=== PATIENT | female | born 2000 | race Caucasian/White ===

== ENCOUNTER 2022-12-22 10:00 | Emergency (ER) | payer MEDICAID, SELFPAY ==
[2022-12-22 10:02] VITALS: BP 110/84; PULSE 95; RESP 16; TEMP 36.4; O2SAT 97; BMI 44.0
--- NOTE | 2022-12-22 10:32 | CT_ITS ---
HISTORY: left flank pain. TECHNIQUE: Helically acquired images were obtained of the abdomen and pelvis without oral or IV contrast. A radiation dose optimization technique was used for this scan. 518 images. COMPARISON: None.. FINDINGS: LOWER CHEST: Lung bases clear. BOWEL: Bowel including appendix nondilated nondilated. No focal pericolonic inflammatory change. PERITONEUM: No significant free fluid. LIVER/SPLEEN/PANCREAS: Nonenlarged. GALLBLADDER/BILIARY TREE: Gallbladder present. KIDNEYS AND URETERS: No nephrolithiasis or obstructing ureteral calculus. ADRENAL GLANDS: Mild linear calcification of the left adrenal gland. VESSELS: Abdominal aorta nondilated. PELVIC ORGANS: Vaginal ring noted. ABDOMINAL WALL: Borderline enlarged left inguinal lymph nodes with mild stranding surrounding the femoral vein bifurcation. BONES: Intact. CT/Abdomen/Pelvis without Cont IMPRESSION: Borderline enlarged left inguinal lymph nodes with mild edema or inflammation in the left groin surrounding the femoral vein bifurcation. Recommend correlation with venous Doppler ultrasound to exclude deep venous thrombosis. Negative examination for renal stone. Left adrenal calcification, which may be secondary to prior granulomatous disease or injury. Electronically Signed: Cammy Yeh MD at 12:49 EST ,
--- NOTE | 2022-12-22 10:32 | VDLE_ITS ---
Reason For Study: PAIN Procedure LEFT This is a venous duplex using B-mode, color CFV is compressible, spontaneous, phasic, flow and spectral Doppler. competent, and demonstrates normal Exam performed portable in ED. augmentation. The study was technically difficult. FV is compressible, spontaneous, phasic, A preliminary report was called and/or faxed competent and demonstrates normal to ED. augmentation. POP V is compressible, spontaneous, phasic, competent and demonstrates normal augmentation. T/P Trunk is compressible. PTV is compressible. LT PerV is compressible. GSV is DILATED AND NON-COMPRESSIBLE @ SFJ & APPEARS TO BEGIN EXTENSION INTO THE CFV. GSV IS NON-COMPRESSIBLE AND DILATED TO KNEE. GSV IS COMPRESSIBLE BELOW THE KNEE. VL/Venous Duplex US, Unilateral Interpretation Summary Acute deep vein thrombosis is noted in the left sapheno-femoral junction. Great saphenous vein occluded to knee. Ordering Physician: Jessica Gill Referring Physician: OTD Performed By: Es Montoya RDCS, RVT
--- NOTE | 2022-12-22 10:33 | EDS_ITS ---
HPI History of Present Illness Chief Complaint: General Illness Informant: patient and parent Onset/Context/Timing Onset: Days Context: Gradual Onset Timing: Waxes and wanes Current Severity: Mild Maximum Severity: Moderate Narrative Narrative: Patient presents with left flank pain with some radiation of pain into the medial thigh. Symptoms been ongoing for the past several days. She had the NuvaRing placed 2 weeks ago. She called her [employer]ER who wanted her to get an ultrasound of her leg. The urgent care she went to in [place] refused to do it based on her exam and symptoms. For me she complains of more left flank pain into the groin line with occasional pain into the medial proximal thigh. No urinary symptoms. PFSH PFSH Medical History no medical history no medical history Home Medications rivaroxaban 15 mg tablet (Xarelto) 15 mg PO BID #42 TABLETS 12/22/22 [Rx Last [place] Unknown] Allergy/AdvReac Type Severity Reaction Status Date / Time No Known Allergies Allergy Verified 12/22/22 10:03 Surgical History Hx of section Social History Smoking Status: Current every day smoker tobacco type: e-cigarettes ROS ROS ED Constitutional Constitutional ED: Denies chills or fever(s) Eyes Eyes: Denies change in vision or discharge from eye(s) ENT ENT ED: Denies discharge from eye(s), rhinorrhea or sore throat Cardiovascular Cardiovascular: Denies chest pain or palpitations Respiratory/Chest Respiratory/Chest: Denies cough or dyspnea Gastrointestinal Gastrointestinal: Reports abdominal pain; Denies diarrhea, nausea or vomiting Genitourinary Genitourinary ED: Denies difficulty urinating or dysuria Musculoskeletal Musculoskeletal: Reports back pain and extremity pain Integumentary Denies Abrasions or rash Neurologic Neurologic: Denies headache(s) or weakness Psychiatric Psychiatric: Denies anxiety or depression Allergic/Immunologic Allergic/Immunologic ED: Denies lip swelling or urticaria EXAM Physical Exam Const Vital Signs: 12/22/22 10:02 12/22/22 10:19 12/22/22 12:05 Temperature 97.6 F L Temperature Source Temporal Pulse Rate 95 Respiratory Rate 16 16 Respiratory Effort Normal Non-Labored Blood Pressure 110/84 H Blood Pressure Mean 92 Pulse Ox 97 Oxygen Delivery Method Room Air Positive well nourished and well developed General Appearance ED: well developed HEENT Reports normocephalic and head/scalp atraumatic Eyes PERRL and EOMs intact bilaterally Neck supple Chest Wall inspection of chest normal and palpation of chest normal Resp normal respiratory effort and clear to auscultation bilaterally Cardio regular rate and regular rhythm GI non-tender Auscultation: hypoactive bowel sounds Palpation: soft Back/Spine Back/Spine Narrative: Reproducible tenderness in the left low lumbar paraspinal muscles. Extremity normal to inspection Neuro oriented x3 and no sensory deficits noted Sensorium / Orientation: alert Motor Exam: strength 5/5 throughout Psych mental status grossly normal Skin no rashes or lesions noted MDM MDM MDM Narrative Medical decision making narrative: Lab work obtained to evaluate for leukocytosis, anemia, electrolyte derangement. Urinalysis ordered given the flank pain. CT flank obtained to evaluate for possible kidney stone or ovarian cyst. Venous ultrasound of the left leg obtained to evaluate for blood clot. Patient given IV Toradol for pain. History & Record Review Discussion w/independent historian: Patient and Other (Mother) Lab Data Attestation: I reviewed the patient's lab results. Labs: Laboratory Results - last 24 hr 12/22/22 12/22/22 12/22/22 10:39 10:45 10:45 WBC 11.4 H RBC 4.27 Hgb 13.1 Hct 37.6 MCV 88.1 MCH 30.7 MCHC 34.8 RDW Std Deviation 40.5 RDW Coeff of Cher 12.6 Plt Count 289 MPV 9.3 Immature Gran % (Auto) 0.200 Neut % (Auto) 70.7 H Lymph % (Auto) 19.7 [place] % (Auto) 7.2 Eos % (Auto) 1.8 Baso % (Auto) 0.4 Absolute Neuts (auto) 8.1 H Absolute Lymphs (auto) 2.25 Nucleated RBC % 0 Sodium 139 Potassium 3.7 Chloride 107 Carbon Dioxide 26.0 Anion Gap 6 BUN 11 Creatinine 0.72 Estim Creat Clear Calc 96.11 Est GFR (MDRD) Af Amer 129 Est GFR (MDRD) Non-Af 107 BUN/Creatinine Ratio 15.3 Glucose 102 Calcium 8.8 Urine Color Yellow Urine Clarity Sl. Cloudy Urine pH 6.0 Ur Specific [place] 1.020 Urine Protein 15 H Urine Glucose (UA) Normal Urine Ketones Negative Urine Occult Blood 10 H Urine Nitrite Negative Urine Bilirubin Negative Urine Urobilinogen Normal Ur Leukocyte Esterase 25 H Urine RBC 0 SEEN Urine WBC 0-5 SEEN Ur Squamous Epith Cells 5-10 SEEN Urine Bacteria 1+ Urine Mucus 0 SEEN Urine Test Negative Radiography Diagnostic Testing: Clinical Impression(s) from Imaging Studies Abdomen/Pelvis CT 12/22/22 10:32 IMPRESSION: Borderline enlarged left inguinal lymph nodes with mild edema or inflammation in the left groin surrounding the femoral vein bifurcation. Recommend correlation with venous Doppler ultrasound to exclude deep venous thrombosis. Negative examination for renal stone. Left adrenal calcification, which may be secondary to prior granulomatous disease or injury. Electronically Signed: Cammy Yeh MD at 12:49 EST , Differential Diagnosis Differential Diagnosis: UTI Why less likely: No evidence of infection on urinalysis Differential Diagnosis: Kidney stone Why less likely: No evidence of stone noted on CT flank. Treatment and Re-Evaluation :: CBC and chemistry studies significant only for mild leukocytosis with a white count 11.4. 70% neutrophils noted. Chemistry studies unremarkable. Urinalysis reveals 1+ bacteria with 5-10 epithelial cells and negative nitrites. CT flank reveals enlarged lymph nodes in the left inguinal region. Correlation with venous Doppler suggested to exclude DVT. No evidence of renal stone. Venous ultrasound reveals evidence of a superficial clot in the greater saphenous, however when I spoke with the tech she states it is a large clot and is extending into the junction just starting into the common femoral vein. In light of this she will be treated with blood thinners. I do a coupon card for Xarelto and this to be given to the patient. Discharge Plan Triage Chief Complaint: General Illness ED Provider: Jessica Gill Dx/Rx/DC Orders Clinical Impression: DVT (deep venous thrombosis) Instructions: ED Deep Vein Thrombosis (DVT) Prescriptions: New Xarelto 15 mg tablet 15 mg PO BID Qty: 42 0RF Primary Care Provider: Care Physician,No Primary Referrals: NOT,DEFINED [Non-Staff] - Activity Restrictions/Additional Instructions: Follow-up with your primary care physician as scheduled. Disposition Disposition: Home, Self Care Discharge Date/Time: 12/22/22 13:52
[2022-12-22 10:44] LABS: Mucous, Urine 0 SEEN /hpf (<or=2+); Red Blood Cells-Urine 0 SEEN /hpf (0-5)
[2022-12-22] MEDS: Ketorolac 30 MG/ML Syringe IV (10:46)
[2022-12-22 10:49] LABS: Color, Urine Yellow (Yellow); Glucose, Dipstick Normal (Normal); Ketone-Dipstick Negative (Negative); Leukocyte Esterase-Dipstick 25 /ul (Negative); Nitrite-Dipstick Negative (Negative); Occult Blood-Urine 10 /ul (Negative); Protein-Dipstick 15 mg/dl (Negative); Urine Bilirubin Dipstick Negative (Negative); Urine Clarity Sl. Cloudy (Clear); Urine Urobilinogen Normal (Normal)
[2022-12-22 10:52] LABS: Absolute Lymphocyte Count 2.25 X10^3/uL (0.83-4.51); Absolute Neutrophil Count 8.1 X10^3/uL (2.0-7.7); Basophil# 0.05 X10^3/uL; Basophil% 0.4 % (0-1); Eosinophil# 0.21 X10^3/uL; Eosinophils% 1.8 % (0-5); Hematocrit 37.6 % (37-47); Hemoglobin 13.1 g/dL (12.0-15.0); Lymphocyte # 2.25 X10^3/ul (0.83-4.51); Lymphocyte % 19.7 % (19-41); Mean Corp Hgb Conc 34.8 g/dL (32-36); Mean Corpuscular Hgb 30.7 pg (27.0-32.0); Mean Corpuscular Volume 88.1 fL (81-99); Mean Platelet Vol. 9.3 fl (6.2-12.0); Monocyte# 0.82 X10^3/uL; Monocyte% 7.2 % (0-10); NRBC Flagged by Analyzer 0 % (0-5); Neutrophil # 8.05 X10^3/uL (2.7-7.7); Neutrophil % 70.7 % (47-70); Platelet Count 289 K/mm3 (150-450); RBC Distribution Width CV 12.6 % (11.6-14.6); RBC Distribution Width SD 40.5 fl (35.1-43.9); Red Blood Count 4.27 M/mm3 (4.2-5.4); White Blood Count 11.4 K/mm3 (4.4-11.0)
[2022-12-22 10:57] LABS: Bacteria 1+ /hpf (None Seen); Squamous Epithelial Cells - UA 5-10 SEEN /hpf (5-10); White Blood Cells 0-5 SEEN /hpf (0-5)
[2022-12-22 11:04] LABS: Anion Gap 6 (5-15); BUN 11 mg/dL (7-18); BUN/Creat Ratio 15.3 RATIO (10-20); Calcium,Total 8.8 mg/dL (8.5-10.1); Chloride 107 mmol/L (98-107); Creatinine, Serum 0.72 mg/dL (0.55-1.02); EST Glomerular Filtration Rate 107 mL/min (>60); Est Glom Filt Rate - Afr Amer 129 mL/min (>60); Estimated Creatinine Clearance 96.11 ml/min; Glucose 102 mg/dL (74-106); Potassium 3.7 mmol/L (3.5-5.1); Sodium Level 139 mmol/L (136-145)
[2022-12-22 11:59] LABS: Internal QC Validated? YES +Cl - CLEAR BKGD; Pregnancy, Urine Negative Negative
[2022-12-22 12:05] VITALS: RESP 16
[2022-12-22] MEDS: Rivaroxaban 15 MG Tablet PO (13:49)
== END 2022-12-22 13:52 | disposition home or self-care (01) ==
PROVIDERS: Emergency Provider Emergency Medicine; Visit Provider Emergency Medicine
DX: I82.412 Acute embolism and thrombosis of left femoral vein (principal); Z79.01 Long term (current) use of anticoagulants; F17.290 Nicotine dependence, other tobacco product, uncomplicated
CPT/HCPCS: 74176; 80048; 81001; 81025; 85025; 93971; 96374; 99284; A4216